=== PATIENT | male | born 2000 | race Caucasian/White ===

== ENCOUNTER 2020-10-08 16:11 | Emergency (ER) | payer MEDICAID, SELFPAY ==
[2020-10-08 16:13] VITALS: BP 134/77; PULSE 69; RESP 18; TEMP 36.8; O2SAT 99; BMI 22.3
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
[2020-10-08] MEDS: Diphth,Pertus(ACell),Tet Adult 0.5 ML SYRINGE IM (18:24)
[2020-10-08] MEDS: Silver Sulfadiazine 1 % Cream 20 GM TUBE 1 APPL TOPICAL (18:25)
== END 2020-10-08 18:35 | disposition home or self-care (01) ==
PROVIDERS: Emergency Provider Internal Medicine
DX: T22.212A Burn of second degree of left forearm, initial encounter (principal); T31.0 Burns involving less than 10% of body surface; X16.XXXA Contact with hot heating appliances, radiators and pipes, initial encounter; Y93.9 Activity, unspecified; Y92.9 Unspecified place or not applicable; Y99.9 Unspecified external cause status
CPT/HCPCS: 16020; 90471; 90715; 99283; 99284

== ENCOUNTER 2020-12-19 06:19 | Emergency (ER) | payer MEDICAID, SELFPAY ==
--- NOTE | ~2020-12-19 | XR_ITS ---
EXAMINATION: XR HAND, RIGHT CLINICAL INFORMATION: Right hand injury COMPARISON: None TECHNIQUE: PA, lateral, and oblique views of the right hand. FINDINGS: There is a minimally displaced fracture of the fifth metacarpal neck. Remaining osseous structures appear intact. Articular alignment throughout the hand is anatomic. XR/XR hand RT min 3V IMPRESSION: Minimally displaced fracture of the fifth metacarpal neck.
[2020-12-19 06:33] VITALS: BP 106/64; PULSE 65; RESP 16; TEMP 36.9; O2SAT 98; BMI 22.3
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
== END 2020-12-19 07:28 | disposition home or self-care (01) ==
PROVIDERS: Emergency Provider Emergency Medicine
DX: S62.306A Unspecified fracture of fifth metacarpal bone, right hand, initial encounter for closed fracture (principal); S60.221A Contusion of right hand, initial encounter; M79.641 Pain in right hand; Y29.XXXA Contact with blunt object, undetermined intent, initial encounter; Y93.9 Activity, unspecified; Y92.9 Unspecified place or not applicable; Y99.9 Unspecified external cause status
CPT/HCPCS: 29125; 73130; 99284

== ENCOUNTER → 2020-12-25 10:23 | Outpatient (BNVA) | payer MEDICAID, SELFPAY | PROVIDERS: Visit Provider Physician Assistant | DX: S62.339A Displaced fracture of neck of unspecified metacarpal bone, initial encounter for closed fracture (principal) | CPT/HCPCS: 29085; 99202 ==

== ENCOUNTER → 2021-01-01 14:34 | Outpatient (BNVA) | payer MEDICAID, SELFPAY | PROVIDERS: Visit Provider Physician Assistant | DX: S62.339A Displaced fracture of neck of unspecified metacarpal bone, initial encounter for closed fracture (principal) | CPT/HCPCS: 29085; 99212 ==

== ENCOUNTER 2021-01-09 15:00 | Outpatient (REF) | payer MEDICAID, SELFPAY ==
--- NOTE | ~2021-01-09 | XR_ITS ---
EXAMINATION: XR HAND, RIGHT CLINICAL INFORMATION: Right hand pain. COMPARISON: Right hand radiographs dated 12/19/2020 TECHNIQUE: PA, lateral, and oblique views of the right hand. FINDINGS: Redemonstration of a distal 5th metacarpal fracture with apex dorsal angulation, slightly more prominent when compared to the prior examination. Minimal new bone/callus formation. No new fracture. No dislocation. No abnormal soft tissue calcification. XR/XR hand RT min 3V IMPRESSION: Distal 5th metacarpal fracture with slight interval increase in angulation and minimal new bone/callus formation.
== END 2021-01-09 15:01 | disposition home or self-care (01) ==
LOC: HO.HOSX 15:00
PROVIDERS: Visit Provider Orthopaedic Surgery
DX: S62.336D Displaced fracture of neck of fifth metacarpal bone, right hand, subsequent encounter for fracture with routine healing (principal)
CPT/HCPCS: 73130; 99212

== ENCOUNTER 2021-01-25 07:26 | Outpatient (REF) | payer MEDICAID, SELFPAY | END 2021-01-25 07:27 | disposition home or self-care (01) | LOC: HO.HOSX 07:26 | PROVIDERS: Visit Provider Physician Assistant | DX: Z13.89 Encounter for screening for other disorder (principal) ==

== ENCOUNTER 2021-01-31 08:26 | Outpatient (REF) | payer MEDICAID, SELFPAY | END 2021-01-31 08:27 | disposition home or self-care (01) | LOC: HO.HOSX 08:26 | PROVIDERS: Visit Provider Orthopaedic Surgery | DX: Z13.89 Encounter for screening for other disorder (principal) ==

== ENCOUNTER 2023-09-17 10:26 | Emergency (ER) | payer MEDICAID, SELFPAY ==
--- NOTE | ~2023-09-17 | CT_ITS ---
EXAMINATION: CT HEAD W/O IV CONTRAST CT FACIAL BONES WITHOUT IV CONTRAST CT CERVICAL SPINE W/O IV CONTRAST CLINICAL INFORMATION: Injury. Pain. COMPARISON: None TECHNIQUE: Head - Contiguous axial imaging of the head was performed from the skull base to the vertex without the administration of intravenous contrast, and axial images are reconstructed at 2 mm and 5 mm slice thickness. Cervical spine and facial bones - Volumetric, helical CT acquisitions of the cervical spine and facial bones obtained without contrast; in addition to the standard set of axial images, multiplanar reformatted images were provided in the coronal and sagittal imaging planes. This CT examination was performed using dose optimization techniques as appropriate, variously including the following: *Automated exposure control *Adjustment of mA and/or kV according to patient size (this includes techniques or standardized protocols for targeted exams where dose is matched to indication/reason for exam; i.e. extremities or head) *Use of iterative reconstruction technique DLP: 1392 mGy-cm (total) FINDINGS: HEAD: No evidence of intracranial hemorrhage, major vascular territory infarction, focal mass effect or midline shift. Martin to white matter differentiation is preserved. The sulci and basilar cisterns are unremarkable. The ventricles have normal size and configuration. No hydrocephalus or extra-axial fluid collections. The calvarium is intact and the mastoid air cells and middle ear cavities are clear. FACIAL BONES: There is soft tissue swelling in the left periorbital and perinasal region of the face without radiopaque foreign body or soft tissue gas. The globes and orbital diaz, including lamina papyracea, are intact. The orbital apex, optic canals, and retrobulbar fat planes are normal. The maxilla, mandible and temporomandibular joints are intact. Nasal bones, pterygoid plates and zygomatic arches are normal. Mild mucosal thickening of maxillary sinuses without air-fluid levels. There are a few dental caries, including right mandible second molar, left mandible first molar, left maxillary second premolar tooth where there is associated periapical lucency from periodontal disease. CERVICAL SPINE: The skull base, C1 and C2 lateral masses and atlantodental articulation are intact. No dens fracture. The vertebral body heights and alignment are maintained. No fractures in the anterior or posterior elements. No prevertebral soft tissue swelling. The disc spaces are preserved. The facet joints and uncovertebral joints are unremarkable. No osseous stenosis of the spinal canal or neural foramina. No spinal hematoma or focal fluid collection in the visualized neck. The examined lung apices are clear. Thyroid gland is normal. CT/CT cervical spine wo IV con IMPRESSION: * No intracranial hemorrhage or other acute intracranial pathology. * No fracture or malalignment in the cervical spine. * Posttraumatic left periorbital and perinasal soft tissue swelling without focal measurable fluid collection. No orbital fracture. No evidence of acute maxillofacial bone injury. * Incidentally noted are dental caries, and there is periapical lucency around roots of the left maxillary second premolar tooth.
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
[2023-09-17 10:34] VITALS: BP 129/82; PULSE 66; RESP 18; TEMP 36.8; O2SAT 96; BMI 22.1
[2023-09-17 12:02] VITALS: BP 129/82; PULSE 66; RESP 18; TEMP 36.8; O2SAT 96
== END 2023-09-17 12:03 | disposition home or self-care (01) ==
PROVIDERS: Emergency Provider Emergency Medicine
DX: S00.12XA Contusion of left eyelid and periocular area, initial encounter (principal); R51.9 Headache, unspecified; M54.2 Cervicalgia; Y04.2XXA Assault by strike against or bumped into by another person, initial encounter; Y93.9 Activity, unspecified; Y92.9 Unspecified place or not applicable; Y99.8 Other external cause status
CPT/HCPCS: 70450; 70486; 72125; 99282; 99284